=== PATIENT | female | born 1980 ===

== ENCOUNTER 2021-02-01 12:30 | Outpatient (REF) | payer SELFPAY ==
[2021-02-03 06:13] LABS: COVID-19 RT-PCR UVMMC Result Positive (Negative)
== END 2021-02-01 12:31 | disposition home or self-care (01) ==
LOC: LBN 12:30
PROVIDERS: Visit Provider Nurse Practitioner Family
DX: Z20.822 Contact with and (suspected) exposure to COVID-19 (principal)
CPT/HCPCS: U0003